=== PATIENT | female | born 1930 | race Caucasian/White ===

== ENCOUNTER 2018-05-26 21:16 | Inpatient (IN) | payer MEDICARE, OTHER ==
[~2018-05-26] VITALS: Ht 160 cm; Wt 64.1 kg
[~2018-05-26 21:16] MED LIST: AMLO5TAB4 PO; CAL1TABL8 PO; DOCU-20 PO; LOSA100T15 PO; NIT10P TD; PRAV20TA4 PO; SYN0.1T PO
[2018-05-26] MEDS ORDERED: diltiazem-NS 100mg/100ml 100 ML IV ONE (21:34)
[2018-05-26] MEDS ORDERED: aspirin 81mg tab.chew PO ONE (21:35)
[2018-05-26] MEDS ORDERED: diltiazem 5mg/ml 5ml inj. IV ONE (21:35)
[2018-05-26] MEDS ORDERED: diltiazem-D5W 125mg/125ml 125 ML IV SCH (21:40)
[2018-05-26] MEDS ORDERED: normal saline 1000ml 1,000 ML IV ONE (21:40)
[2018-05-26 21:53] LABS: BASOPHILS % (AUTO) 0.4 % (0-1); EOSINOPHILS # (AUTO) 0.1 X10'3 (0-0.9); EOSINOPHILS % (AUTO) 1.5 % (0-6); HEMATOCRIT 37.1 % (35.0-45.0); HEMOGLOBIN 12.4 g/dl (12.0-16.0); LYMPHOCYTES # (AUTO) 2.6 X10'3 (1.1-4.8); MEAN CORPUSCULAR HEMOGLOBIN 31.7 PG (27.0-31.0); MEAN CORPUSCULAR HGB CONC 33.4 % (33.0-36.5); MEAN CORPUSCULAR VOLUME 94.7 FL (78-98); MEAN PLATELET VOLUME 8.5 FL (7.4-10.4); MONOCYTES # (AUTO) 0.6 X10'3 (0-0.9); MONOCYTES % (AUTO) 8.5 % (2-12); NEUTROPHILS # (AUTO) 3.2 X10'3 (1.8-7.7); NEUTROPHILS % (AUTO) 49.6 % (42-75); PLATELET COUNT 198 X10'3 (140-440); RED BLOOD COUNT 3.92 X10'6 (4.20-5.60); RED CELL DISTRIBUTION WIDTH 13.6 % (11.5-14.5); WHITE BLOOD COUNT 6.5 X10'3 (4.5-11.0)
[2018-05-26 22:10] LABS: ALANINE AMINOTRANSFERASE 15 U/L (12-78); ALBUMIN 3.6 G/DL (3.4-5.0); ALBUMIN/GLOBULIN RATIO 1.1 (1.1-1.5); ALKALINE PHOSPHATASE 59 IU/L (46-116); ANION GAP 8 (8-16); ASPARTATE AMINO TRANSFERASE 17 U/L (10-37); BILIRUBIN,TOTAL 0.3 MG/DL (0.1-1.0); BLOOD UREA NITROGEN 14 MG/DL (7-18); BUN/CREATININE RATIO 18.7 (6.6-38.0); CALCIUM 8.8 MG/DL (8.5-10.1); CHLORIDE 106 MMOL/L (99-107); CREATININE 0.75 MG/DL (0.40-0.90); GLUCOSE 103 MG/DL (70-104); POTASSIUM 3.9 MMOL/L (3.5-5.1); SODIUM 142 MMOL/L (135-145); TOTAL CARBON DIOXIDE 27.7 MMOL/L (24-32); TOTAL PROTEIN 6.8 G/DL (6.4-8.2); eGFR 73 ML/MIN
[2018-05-26] MEDS ORDERED: DABI75CA3 PO (22:49)
[2018-05-27] MEDS ORDERED: ondansetron/PF 4mg/2ml inj IV PRN (00:35)
[2018-05-27] MEDS ORDERED: magnesium hydroxide 30ml (MOM) UD suspension PO PRN (00:35)
[2018-05-27] MEDS ORDERED: mag hydrox/Alum hydrox/simeth 30ml oral suspension PO PRN (00:35)
[2018-05-27] MEDS ORDERED: acetaminophen 325mg tablet PO PRN (00:35)
[2018-05-27 01:30] VITALS: BP 128/55
[2018-05-27 03:00] VITALS: BP 124/58
[2018-05-27 06:00] VITALS: BP 119/57
[2018-05-27] MEDS ORDERED: DIGOXIN 0.125 MG/2.5 ML PO SCH (08:00)
[2018-05-27] MEDS ORDERED: losartan 50mg tablet PO SCH (08:00)
[2018-05-27] MEDS ORDERED: digoxin 125mcg (0.125mg) tablet PO SCH (08:00)
[2018-05-27] MEDS ORDERED: levoTHYROXINE 100mcg tablet PO SCH (08:00)
[2018-05-27] MEDS: diltiazem CD 120mg capsule (once-daily) PO SCH ×2 (08:05→08:20)
[2018-05-27 11:00] VITALS: BP 121/48
[2018-05-27] MEDS ORDERED: DIGO125T5 PO (12:10)
== END 2018-05-27 13:45 | disposition home or self-care (01) | DRG 310 ==
LOC: ER 21:17 → ED HOLD 05-27 00:31 → PCU 3S 05-27 01:33
PROVIDERS: ADMIT Internal Medicine; ATTEND Internal Medicine
DX: I48.0 Paroxysmal atrial fibrillation (principal); I25.10 Atherosclerotic heart disease of native coronary artery without angina pectoris; I11.9 Hypertensive heart disease without heart failure; I43 Cardiomyopathy in diseases classified elsewhere; E03.9 Hypothyroidism, unspecified; Z95.1 Presence of aortocoronary bypass graft; Z88.0 Allergy status to penicillin; Z88.6 Allergy status to analgesic agent; Z79.890 Hormone replacement therapy; Z79.02 Long term (current) use of antithrombotics/antiplatelets
CPT/HCPCS: 36415; 71045; 80053; 83735; 83880; 84484; 85025; 87070; 93005; 96361; 96374; 99285; G0378; J3490; J7030

== ENCOUNTER 2018-08-12 21:20 | Emergency (ER) | payer MEDICARE, OTHER ==
[~2018-08-12] VITALS: Ht 162.6 cm; Wt 62.3 kg
[~2018-08-12 21:20] MED LIST changes: -AMLO5TAB4 PO; -CAL1TABL8 PO; +DABI75CA3 PO; +DIGO125T5 PO; -DOCU-20 PO; -LOSA100T15 PO; +LOSA100T57 PO; -NIT10P TD; -PRAV20TA4 PO
[2018-08-12] MEDS ORDERED: ondansetron/PF 4mg/2ml inj IV ONE (21:45)
[2018-08-12] MEDS ORDERED: normal saline 1000ML IV soln IVB ONE (21:45)
[2018-08-12 21:54] VITALS: BP 154/77
[2018-08-12 22:07] LABS: BASOPHILS % (AUTO) 0.3 % (0-1); EOSINOPHILS # (AUTO) 0.1 X10'3 (0-0.9); EOSINOPHILS % (AUTO) 1.5 % (0-6); HEMATOCRIT 36.9 % (35.0-45.0); HEMOGLOBIN 12.3 g/dl (12.0-16.0); LYMPHOCYTES # (AUTO) 2.5 X10'3 (1.1-4.8); LYMPHOCYTES % (AUTO) 37.1 % (21-51); MEAN CORPUSCULAR HEMOGLOBIN 31.3 PG (27.0-31.0); MEAN CORPUSCULAR HGB CONC 33.3 g/dL (33.0-36.5); MEAN CORPUSCULAR VOLUME 93.8 FL (78-98); MEAN PLATELET VOLUME 8.8 FL (7.4-10.4); MONOCYTES # (AUTO) 0.5 X10'3 (0-0.9); MONOCYTES % (AUTO) 8.3 % (2-12); NEUTROPHILS # (AUTO) 3.5 X10'3 (1.8-7.7); NEUTROPHILS % (AUTO) 52.8 % (42-75); PLATELET COUNT 173 X10'3 (140-440); RED BLOOD COUNT 3.94 X10'6 (4.20-5.60); RED CELL DISTRIBUTION WIDTH 12.5 % (11.5-14.5); WHITE BLOOD COUNT 6.6 X10'3 (4.5-11.0)
[2018-08-12 22:15] LABS: ALANINE AMINOTRANSFERASE 17 U/L (12-78); ALBUMIN 3.6 G/DL (3.4-5.0); ALBUMIN/GLOBULIN RATIO 1.1 (1.1-1.5); ALKALINE PHOSPHATASE 68 IU/L (46-116); ANION GAP 11 (8-16); ASPARTATE AMINO TRANSFERASE 18 U/L (10-37); BILIRUBIN,TOTAL 0.5 MG/DL (0.1-1.0); BLOOD UREA NITROGEN 15 MG/DL (7-18); BUN/CREATININE RATIO 20.5 (6.6-38.0); CHLORIDE 102 MMOL/L (99-107); CREATININE 0.73 MG/DL (0.40-0.90); GLUCOSE 91 MG/DL (70-104); POTASSIUM 3.9 MMOL/L (3.5-5.1); SODIUM 137 MMOL/L (135-145); TOTAL CARBON DIOXIDE 24.5 MMOL/L (24-32); TOTAL PROTEIN 6.9 G/DL (6.4-8.2); eGFR 76 ML/MIN
[2018-08-12 22:17] LABS: INR 1.3 INR; PARTIAL THROMBOPLASTIN TIME 47 SECONDS (22-32); PROTHROMBIN TIME 13.3 SECONDS (9.0-12.0)
[2018-08-12] MEDS ORDERED: ONDA4TAB6 PO (22:35)
== END 2018-08-12 22:59 | disposition home or self-care (01) ==
LOC: ER 21:21
DX: R11.2 Nausea with vomiting, unspecified (principal); R42 Dizziness and giddiness; I10 Essential (primary) hypertension; I25.10 Atherosclerotic heart disease of native coronary artery without angina pectoris; Z88.5 Allergy status to narcotic agent; Z88.0 Allergy status to penicillin; Z79.899 Other long term (current) drug therapy
CPT/HCPCS: 36415; 71045; 80053; 84484; 85025; 85610; 85730; 93005; 96361; 96374; 99284; J2405; J7030